=== PATIENT | male | born 2000 | race Two or more races ===

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

== ENCOUNTER → 2022-10-19 | Outpatient (CLI) | payer OTHER ==
--- NOTE | 2022-10-20 08:36 | XR ---
EXAMINATION TYPE: XR hand complete bilateral DATE OF EXAM: 10/19/2022 COMPARISON: Right hand 03/07/2014 HISTORY: Punched wall with left hand TECHNIQUE: Bilateral hands are examined in 3 projections each. FINDINGS: No acute fractures or dislocations are evident. Joint spaces are preserved. Soft tissues ar e normal. Follow-up exams can be performed 7-10 days acute trauma for continued pain. IMPRESSION: 1. No acute osseous abnormalities bilaterally.
== END | disposition home or self-care (01) ==
LOC: RADXRMAIN 15:25
PROVIDERS: ATTEND Family Medicine
DX: M79.89 Other specified soft tissue disorders (principal); M79.642 Pain in left hand

== ENCOUNTER → 2024-02-12 | Outpatient (CLI) | payer SELFPAY ==
--- NOTE | 2024-02-13 08:10 | XR ---
EXAMINATION TYPE: XR wrist complete LT DATE OF EXAM: 02/12/2024 COMPARISON: 10/19/2022 ( HISTORY: Pain TECHNIQUE: 4 view left wrist FINDINGS: There is a transverse fracture of the scaphoid. This appears nondisplaced. Joint spaces are preserved. No additional fractures evident. Mild soft tissue swelling may be present . IMPRESSION: 1. Nondisplaced transverse fracture mid scaphoid.
== END | disposition home or self-care (01) ==
LOC: RADXRMAIN 18:33
PROVIDERS: ATTEND Nurse Practitioner Women's Health
DX: S62.102A Fracture of unspecified carpal bone, left wrist, initial encounter for closed fracture (principal)

== ENCOUNTER → 2024-02-14 | Outpatient (CLI) | payer OTHER ==
--- NOTE | 2024-02-14 18:00 | CT ---
EXAMINATION TYPE: CT wrist LT wo con CT DLP: 111.2 mGycm, Automated exposure control for dose reduction was used. DATE OF EXAM: 02/14/2024 5:44 PM COMPARISON: . Extremity radiograph . 02/12/2024 CLINICAL INDICATION:Male, 23 years old with history of S62.025A NONDISP FX OF MIDDLE THIRD OF NAV[employer] B ONE; PHH, Scaphoid Fx. TECHNIQUE: Axial images were obtained of the CT wrist LT wo con, Additional coronal and sagittal refo rmatted images and soft tissue and bone window were obtained for review. Contrast used: mL of , (None if empty) Oral contrast used: (None if empty) FINDINGS: Acute fracture through the midportion of the scaphoid with mild displacement. No additional fractures visualized. Mild soft tissue swelling. Cast material in place. IMPRESSION: Acute mid scaphoid fracture with minimal displacement.
== END | disposition home or self-care (01) ==
LOC: RADCTMAIN 17:10
PROVIDERS: ATTEND Orthopaedic Surgery Hand Surgery
DX: S62.022A Displaced fracture of middle third of navicular [scaphoid] bone of left wrist, initial encounter for closed fracture (principal); X58.XXXA Exposure to other specified factors, initial encounter

== ENCOUNTER → 2024-03-14 | Outpatient (CLI) | payer OTHER ==
--- NOTE | 2024-03-16 10:33 | CT ---
EXAMINATION TYPE: CT wrist LT wo con CT DLP: 123.4 mGycm, Automated exposure control for dose reduction was used. DATE OF EXAM: 03/14/2024 5:32 PM COMPARISON: CT 02/14/2024. CLINICAL INDICATION:Male, 23 years old with history of S62.022D DISP FX OF MID 3RD OF NAV[employer] BONE OF L WRS; PHH, Scaphoid Fx follow up. TECHNIQUE: Axial images were obtained of the CT wrist LT wo con, Additional coronal and sagittal refo rmatted images and soft tissue and bone window were obtained for review. Contrast used: mL of , (None if empty) Oral contrast used: (None if empty) FINDINGS: Increased in bony remodeling and increased bone within the fracture site compared to prior on 02/14/2024. There remains a fracture line present through the midportion of the scaphoid . No addit ional fractures visualized. Mild soft tissue swelling. Cast material in place. IMPRESSION: Interval healing changes with increased bony callus formation along the fracture site of the scaphoid mid body. Continued surveillance recommended. Stable alignment.
== END | disposition home or self-care (01) ==
LOC: RADCTMAIN 17:10
PROVIDERS: ATTEND Orthopaedic Surgery Hand Surgery
DX: S62.022D Displaced fracture of middle third of navicular [scaphoid] bone of left wrist, subsequent encounter for fracture with routine healing (principal)